=== PATIENT | male | born 1950 | race Caucasian/White ===

== ENCOUNTER 2017-07-16 06:11 | Day surgery (SDC) | payer OTHER ==
[2017-07-08 12:35] VITALS: BMI 20.9
[2017-07-16] MEDS ORDERED: oxyCODONE HCL 10 MG SUSTAINED ACTING TABLET PO ONE (06:20)
[2017-07-16] MEDS ORDERED: CEFAZOLIN 1 GM/D5W 1 GM/50 ML BAG IVPB ONE (06:20)
[2017-07-16] MEDS ORDERED: GABAPENTIN 300 MG CAPSULE (FP) PO ONE (06:20)
[2017-07-16] MEDS ORDERED: CELECOXIB 200 MG CAPSULE PO ONE (06:20)
[2017-07-16] MEDS ORDERED: TRANEXAMIC ACID 1000 MG/10 ML VIAL IVPUSH ONE (06:20)
[2017-07-16] MEDS ORDERED: ROPIVICAINE 0.2%/MORPH PF/KETOROLAC - 51ML DISP.SYRINGE IA ONE ×4 (06:20→09:29)
[2017-07-16] MEDS ORDERED: GABAPENTIN 300 MG CAPSULE (FP) ONE (06:22)
[2017-07-16] MEDS ORDERED: CELECOXIB 200 MG CAPSULE ONE (06:22)
[2017-07-16] MEDS ORDERED: oxyCODONE HCL 10 MG SUSTAINED ACTING TABLET ONE (06:22)
[2017-07-16] MEDS ORDERED: ROPIVACAINE HCL 0.5% 30ML VIAL ONE (06:36)
[2017-07-16] MEDS ORDERED: DEXAMETHASONE SOD PHOSPHATE/PF 10 MG/ML SDV ONE (06:36)
[2017-07-16] MEDS ORDERED: MIDAZOLAM HCL 2 MG/2 ML SINGLE DOSE VIAL ONE (06:36)
[2017-07-16] MEDS ORDERED: ceFAZolin SODIUM 1 GM VIAL ONE (07:09)
[2017-07-16] MEDS ORDERED: THROMBIN (BOVINE) 5,000 UNIT VIAL TP ONE ×3 (07:09→09:09)
[2017-07-16] MEDS ORDERED: BUPIVACAINE HCL/PF 0.5% (5MG/ML) 10 ML VIAL ONE (07:26)
[2017-07-16] MEDS ORDERED: PROPOFOL 20 ML ONE ×4 (07:32)
[2017-07-16] MEDS ORDERED: ePHEDrine SULFATE 50 MG/1 ML AMPULE ONE (07:32)
--- NOTE | 2017-07-16 07:49 | HP ---
Satellite [facility] - Chief Complaint Chief Complaint: left knee pain - Past Medical History Allergies/Adverse Reactions: Allergies Allergy/AdvReac Type Severity Reaction Status Date / Time No Known Drug Allergies Allergy Verified 07/08/17 12:22 - Current Medications Current Medications: Home Medications Medication Instructions Recorded Ascorbic Acid [Vitamin C] 500 mg PO DAILY 07/08/17 Elviteg/Cob/Emtri/Tenof Alafen 1 each PO HS 07/08/17 [Genvoya Tablet] Ferrous Sulfate 325 mg PO DAILY 07/08/17 Lisinopril 10 mg PO DAILY 07/08/17 Methadone [Dolophine -] 15 mg PO DAILY 07/08/17 Satellite Physical Exam - Physical Examination Vital Signs: Vital Signs Period Temp Pulse Resp BP Sys/Holman Pulse Ox Last 24 Hr 98.5 F 78 18 121/68 98 General Appearance: Well Nourished, Well Developed, Alert & Oriented x3 ENT: Clear Lung: Normal air movement Heart: Regular rate & rhythm Extremities: Other (left knee- + swelling, + ttp medially, decr rom, nvi xrays show grade 4 medial djd) Neurological: Intact, Alert, Oriented Satellite Impression/Plan - Impression/Plan Impression: left knee medial djd Operative Procedure: left medial maximus ukr Date to be Performed: 07/16/17
[2017-07-16] MEDS ORDERED: GELATIN, ABSORBABLE 100 EACH SPONGE TP ONE ×2 (08:46→09:09)
[2017-07-16] MEDS ORDERED: MAG HYDROX/AL HYDROX/SIMETH 30 ML UNIT-DOSE CUP PO PRN (09:43)
[2017-07-16] MEDS ORDERED: LACTATED RINGERS SOLUTION 1,000 ML IV SCH (09:45)
--- NOTE | 2017-07-16 09:48 | OP ---
Operative Note - Note: Operative Date: 07/16/17 (zen) Pre-Operative Diagnosis: left knee medial djd Operation: left medial maximus ukr Post-Operative Diagnosis: Same as Pre-op Surgeon: Brennan Hernandez Rolling Mill Operator: Ulices Maldonado Anesthesiologist/SHELL TRIM TOOL SETTER: Tyron Lundberg Anesthesia: Spinal, Local Specimens Removed: bone fragments Estimated Blood Loss (mls): 50 Operative Report Dictated: Yes
[2017-07-16] MEDS ORDERED: LISINOPRIL 10 MG TABLET (FP) PO SCH (10:00)
[2017-07-16] MEDS ORDERED: ONDANSETRON 4 MG/2 ML VIAL IVPUSH PRN (10:55)
[2017-07-16] MEDS ORDERED: oxyCODONE HCL 5 MG TABLET PO PRN ×2 (10:55)
[2017-07-16] MEDS: ACETAMINOPHEN 325 MG TABLET (FP) PO SCH ×2 (11:05→18:21)
[2017-07-16] MEDS: METHADONE HCL 10 MG TABLET PO SCH (13:00)
--- NOTE | 2017-07-16 14:50 | SPEC ---
DATE OF OPERATION: 07/16/2017 PREOPERATIVE DIAGNOSIS: Degenerative joint disease, left knee. POSTOPERATIVE DIAGNOSIS: Degenerative joint disease, left knee. PROCEDURE: Left medial unicompartmental knee replacement with robotic-assisted navigation (MAKOplasty) and patelloplasty. SURGICAL ATTENDING: Brennan Hernandez MD RANCH MANAGER: PIA Figueroa ANESTHESIA: Regional and spinal. CLOSURE: Medial VALENTE components with a 4 femur, 6 tibia, and a 9 polyethylene; No. 1 Vicryl, fascia; 0 and 2-0, subcutaneous; 3-0 Monocryl subcuticular with skin glue for the skin; 4-0 undyed Vicryl for pin sites. ESTIMATED BLOOD LOSS: Negligible. TOURNIQUET TIME: Approximately 25 minutes. COMPLICATIONS: None. CONDITION: To recovery in stable condition. DESCRIPTION OF OPERATIVE PROCEDURE: Patient was taken to the operating room on July 16, 2017. Spinal and regional anesthesia was administered by the anesthesiologist. IV Kefzol and TXA were administered prophylactically prior to the case. A well-padded pneumatic tourniquet was placed on the left proximal thigh. The left lower extremity was prepped and draped in the usual sterile fashion. A 6- to 8-cm longitudinal incision over the medial side of the patella from mid patella to the tibial tubercle was incised and was deepened using Bovie cautery. An arthrotomy was then made just medial to the patellar tendon and the patella. Subperiosteal dissection was done on the anteromedial proximal tibia all the way back to the MCL. Partial fat pad excision was performed, exposing the medial compartment. Checkpoint was malleable at both the femur and the tibia. Using 2 stab incisions in the femur 1 handbreadth above the patella on the femur and 2 stab incisions 1 handbreadth below the tibial tubercle on the tibia, 2 threaded pins were drilled in parallel fashion from anterior to posterior, going through the proximal cortex and engaging the 2nd but not through the 2nd cortex. To these threaded pins were fastened navigation rays, 1 on the femur and 1 on the tibia. The knee was then registered with the navigation device with the center of the rotation of the hip, medial and lateral malleoli, and multiple points both on the femur and on the tibia. Excellent registration of less than 0.5 mm was obtained on both to ensure adequate registration. The navigation device ensured us to "pop the bubbles" both on the femur and the tibia and that was performed and passed registration. The knee was then thoroughly inspected to remove all osteophytes both on the femur and the tibia. Also, osteophytes on the trochlea and on the surface of the patella were removed as well. The knee was then stressed with valgus stress at 0, 30, 60, 90, and 120 degrees of flexion. This propagated a looseness/tightness graft. The virtual positions of the components were then optimized to ensure an excellent graft. The tracking also was optimized by manipulating the virtual position to ensure that the femoral component articulated with the central portion of the tibial component. The robot was then brought into the field and was registered. The robot was used to bur the bone on both the femur and the tibia as to the specifications of the components. The trial components were then applied on both the femur and the tibia with an appropriate polyethylene insert. The knee was taken through a range of motion and found to have full extension, full flexion, with excellent stability. Stressing the graft revealed an excellent looseness/tightness graft with the trial components in place. The trial components were removed. The knee was thoroughly irrigated with a copious amount of antibiotic irrigation. The real components were then cemented in using modern generation cement techniques with antibiotic cement and pressurization. After the cement was hardened, the knee was thoroughly inspected to remove out all excess cement. The real polyethylene insert was then clipped into place. Range of motion and stability were again assessed to be as they were with the trials. At this time, the pins and the checkpoints were removed. The knee was again thoroughly irrigated. The arthrotomy was closed with No. 1 Vicryl, 0 and 2-0 subcutaneous, and 3-0 Monocryl subcuticular with skin glue for the skin, 4-0 undyed Vicryl for the pin sites. Sterile pressure dressing was placed over the knee. Patient awakened from anesthesia and transferred to recovery in stable condition. No complications. Estimated blood loss negligible. X-rays postoperatively revealed excellent position of the components. Yesenia [id number]
[2017-07-16] MEDS: CEFAZOLIN 1 GM/D5W 1 GRAM/50 ML BAG IVPB SCH (16:30)
[2017-07-16] MEDS: SENNOSIDES/DOCUSATE COMBO (SENNA PLUS) TABLET (UD) PO SCH (21:36)
[2017-07-16] MEDS: GABAPENTIN 300 MG CAPSULE (FP) PO SCH (21:36)
[2017-07-16] MEDS ORDERED: oxyCODONE HCL 10 MG SUSTAINED ACTING TABLET PO SCH (22:00)
[2017-07-17] MEDS: ACETAMINOPHEN 325 MG TABLET (FP) PO SCH ×2 (00:09→06:36)
[2017-07-17] MEDS: CEFAZOLIN 1 GM/D5W 1 GRAM/50 ML BAG IVPB SCH (00:09)
[2017-07-17 06:38] VITALS: BP 107/55; PULSE 58; TEMP 97.7
--- NOTE | 2017-07-17 07:54 | PN ---
Progress Note (short form) - Note Progress Note: Ortho Pt seen and examined s/p left medial maximus ukr pod #1 Selected Entries 07/17/17 04:00 Temperature 97.7 F Pulse Rate 58 L Respiratory 19 Rate Blood Pressure 107/55 dressing c/d/i, calf soft, nt rom 0-90, nvi a/p PT dvt ppx pain control d/c home today f/u in 1 week
--- NOTE | 2017-07-17 07:54 | DS ---
Physical Examination Vital Signs: Vital Signs Temperature 97.7 F 07/17/17 04:00 Pulse Rate 58 L 07/17/17 04:00 Respiratory Rate 19 07/17/17 04:00 Blood Pressure 107/55 07/17/17 04:00 O2 Sat by Pulse Oximetry (%) 95 07/17/17 06:37 Discharge Summary Reason For Visit: OSTEOARTHRITIS Procedures: Principal: s/p left medial maximus ukr Hospital Course: admitted for elective left medial maximus ukr, uneventful post-op, stable for d/c Condition: Good - Instructions Diet, Activity, Other Instructions: Post-op Instructions-Partial Knee Replacement Call the office for a follow-up appointment in 1 week - [phone] Aspirin 325mg daily for 6 weeks. Pain medication was sent into your pharmacy. Apply Graduated Compression Stockings (TEDs) to both lower extremities- remove daily for hygiene ONLY Apply Sequential Compression Device (SCDs) to both Lower extremities remove for PT and hygiene ONLY Apply cold packs to affected area for 15 minutes every 2 hours. Physical Therapist will come to your home for the first 5 days. You will be set up with outpatient PT at your first post-operative visit. Patient may ambulate as tolerated-encourage self care (at least every 2-3 hours while awake) with walker or cane Maintain Aquacel (waterproof) dressing to operative wound (will be removed by surgeon at first office visit) Shower with Aquacel dressing in place-if Aquacel integrity compromised, remove and apply dry sterile dressing and notify Orthopedist. DO NOT SHOWER unless Orthopedists approves without Aquacel dressing CONTACT THE OFFICE FOR ANY CHANGE IN YOUR CONDITION (for example-fever greater than 102 degrees, excessive bleeding from operative site, purulent drainage, severe swelling or pain) GO TO THE EMERGENCY ROOM IF THERE IS A MEDICAL EMERGENCY Knee Precautions: * Keep a rolled towel under affected heel while in bed or chair (to keep knee in extension) * Keep affected leg elevated except during mealtimes * DO NOT PLACE PILLOW UNDER AFFECTED KNEE * If you have any questions, please do not hesitate to call the office - [phone]. Referrals: Brennan Hernandez MD [Staff Physician] - Disposition: VNS/HOME HEALTH CARE - Home Medications Comprehensive Discharge Medication List: Ambulatory Orders Ascorbic Acid [Vitamin C] 500 mg PO DAILY 07/08/17 Elviteg/Cob/Emtri/Tenof Alafen [Genvoya Tablet] 1 each PO HS 07/08/17 Ferrous Sulfate 325 mg PO DAILY 07/08/17 Lisinopril 10 mg PO DAILY 07/08/17 Methadone [Dolophine -] 15 mg PO DAILY 07/08/17 Aspirin [ASA -] 325 mg PO DAILY@0800 tablet 07/16/17 Oxycodone HCl/Acetaminophen [Percocet 5-325 mg Tablet] 1 - 2 tab PO Q6H #50 tab MDD 8 07/16/17
[2017-07-17] MEDS ORDERED: ASPIRIN 325 MG TABLET PO SCH (08:00)
[2017-07-17] MEDS: MULTIVITAMINS (DAILY MVI) TABLET (FP) PO SCH ×2 (09:12→09:15)
[2017-07-17] MEDS: PANTOPRAZOLE 40 MG TABLET (FP) PO SCH ×2 (09:12→09:15)
[2017-07-17] MEDS: SENNOSIDES/DOCUSATE COMBO (SENNA PLUS) TABLET (UD) PO SCH ×2 (09:12→09:18)
[2017-07-17] MEDS: FERROUS SO4 325 MG TABLET (FP) PO SCH ×2 (09:12→09:14)
[2017-07-17] MEDS: METHADONE HCL 10 MG TABLET PO SCH (09:15)
[2017-07-17] MEDS: GABAPENTIN 300 MG CAPSULE (FP) PO SCH (09:15)
[2017-07-17] MEDS ORDERED: LISINOPRIL 10 MG TABLET (FP) PO SCH (10:00)
== END 2017-07-17 11:37 | disposition home health service (06) ==
LOC: FASU 06:11 → FM/S 06:20 → FASU 07-17 11:37
PROVIDERS: ATTEND Orthopaedic Surgery
PROC: 8E0YXBZ Computer Assisted Procedure of Lower Extremity (ICD-10-PCS; 2017-07-16)
PROC: 8E0Y0CZ Robotic Assisted Procedure of Lower Extremity, Open Approach (ICD-10-PCS; 2017-07-16)
PROC: 0SRD0L9 Replacement of Left Knee Joint with Medial Unicondylar Synthetic Substitute, Cemented, Open Approach (ICD-10-PCS; principal; 2017-07-16 08:00)
DX: M17.12 Unilateral primary osteoarthritis, left knee (principal)
CPT/HCPCS: 20985; 27446; C1776; S2900; 73560-TC-LT-FY; 94010; 94760; 97116-GP; 97162-GP

== ENCOUNTER 2019-11-02 00:50 | Inpatient (IN) | payer OTHER ==
[2019-11-02] MEDS ORDERED: ONDANSETRON 4 MG/2 ML VIAL IVPUSH ONE ×2 (01:25→02:49)
[2019-11-02] MEDS ORDERED: FAMOTIDINE 20 MG/50 ML IVPB 20 MG/50 ML MG IVPB ONE ×2 (01:45→01:53)
[2019-11-02 01:49] LABS: BASO % 0.6 % (0-2.0); EOS % 2.4 % (0-4.5); HEMATOCRIT 37.8 % (35.4-49); LYMPH % 32.1 % (8-40); MCH 35.8 pg (25.7-33.7); MCHC 34.4 g/dl (32.0-35.9); MEAN PLT VOLUME 9.2 fl (7.5-11.1); NEUT % 57.9 % (42.8-82.8); PLATELET COUNT 193 K/MM3 (134-434); RBC 3.63 M/mm3 (4.00-5.60); WHITE BLOOD COUNT 9.1 K/mm3 (4.0-10.0)
--- NOTE | 2019-11-02 01:53 | PDOC ---
History of Present Illness - General Chief Complaint: Lightheaded Stated Complaint: DIZZINESS, VOMITING Time Seen by Provider: 11/02/19 01:19 - History of Present Illness Initial Comments: 11/02/19 01:52 HPI: 69 y/o M with hx of HIV and HTN presenting with dizziness associated with abd pain, nausea, and emesis. Patient reports he believes he had food poisoning. He had soup earlier this evening then around 11pm he felt abd pain which was followed by dizziness and emesis. Pain was epigastric and non radiating and difficult to describe. Denies similar episodes in the past. He reports he feels like his head is spinning and feels like he is going to pass out. Deneis syncope, trauma, fever, chills, chest pain, SOB, dysuria, diarrhea, constipation PMHx: as noted above ROS: as noted SHx: Denies tobacco use; no alcohol use; no rec drugs Allergies: NKDA ROS: GENERAL/CONSTITUTIONAL: No fever or chills. +gen weakness. HEAD, EYES, EARS, NOSE AND THROAT: No change in vision. No ear pain or discharge. No sore throat. CARDIOVASCULAR: No chest pain or shortness of breath RESPIRATORY: No cough, wheezing, or hemoptysis. GASTROINTESTINAL: +nausea, vomiting; no diarrhea or constipation. GENITOURINARY: No dysuria, frequency, or change in urination. MUSCULOSKELETAL: No joint or muscle swelling or pain. No neck or back pain. SKIN: No rash NEUROLOGIC: +vertigo; No headache, loss of consciousness, or change in strength/sensation. ENDOCRINE: No increased thirst. No abnormal weight change HEMATOLOGIC/LYMPHATIC: No anemia, easy bleeding, or history of blood clots. ALLERGIC/IMMUNOLOGIC: No hives or skin allergy. PE: GENERAL: Awake, alert, and fully oriented, mod acute distress, vomiting and dry heaving HEAD: No signs of trauma, normocephalic, atraumatic EYES: EOMI, sclera anicteric, conjunctiva clear ENT: Auricles normal inspection, hearing grossly normal, nares patent, oropharynx clear without exudates. Moist mucosa NECK: Normal ROM, no lymphadenopathy LUNGS: No increased work of breathing, symmetrical chest rise HEART: Regular rate, regular rhythm, no LE edema ABDOMEN: Soft, nondistended, diffuse abd ttp, negative murphys sign, negative rosvings, negative mcburneys, no rebound. No masses. No CVAT MUSCULOSKELETAL: FROM NEUROLOGICAL: Cranial nerves II through XII grossly intact. Normal speech, no focal sensorimotor deficits SKIN: pallor Past History - Medical History Allergies/Adverse Reactions: Allergies Allergy/AdvReac Type Severity Reaction Status Date / Time No Known Drug Allergies Allergy Verified 07/08/17 12:22 Home Medications: Ambulatory Orders Ascorbic Acid [Vitamin C] 500 mg PO DAILY 07/08/17 Elviteg/Cob/Emtri/Tenof Alafen [Genvoya Tablet] 1 each PO HS 07/08/17 Ferrous Sulfate 325 mg PO DAILY 07/08/17 Lisinopril 10 mg PO DAILY 07/08/17 Methadone [Dolophine -] 15 mg PO DAILY 07/08/17 Aspirin [ASA -] 325 mg PO DAILY@0800 tablet 07/16/17 Oxycodone HCl/Acetaminophen [Percocet 5-325 mg Tablet] 1 - 2 tab PO Q6H #50 tab MDD 8 07/16/17 Anemia: No (TAKING IRON BEFORE SURGERY) Asthma: No Cancer: No Cardiac Disorders: No CVA: No COPD: No CHF: No Dementia: No Diabetes: No GI Disorders: No Disorders: Yes (BPH) HTN: Yes Hypercholesterolemia: No Liver Disease: No Seizures: No Thyroid Disease: No - Surgical History Abdominal Surgery: No Appendectomy: No Cardiac Surgery: No Cholecystectomy: No Lung Surgery: No Neurologic Surgery: No Orthopedic Surgery: No - Psycho-Social/Smoking History Smoking History: Unknown if ever smoked Have you smoked in the past 12 months: Yes Number of Cigarettes Smoked Daily: 5 'Breaking Loose' booklet given: 06/10/17 - Substance Abuse Hx (Audit-C & DAST Scrn) How often the patient has a drink containing alcohol: Monthly or less Score: In Men: 4 or > Positive; In Women: 3 or > Positive: 1 Screen Result (Pos requires Nsg. Audit-10AR): Negative In the last yr the pt used illegal drug/Rx for NonMed reason: No Score: Yes response is considered Positive: 0 Screen Result (Positive result requires Nsg. DAST-10): Negative *Physical Exam - Vital Signs Last Vital Signs Temp Pulse Resp BP Pulse Ox 97.6 F 62 17 125/64 100 11/02/19 01:00 11/02/19 01:00 11/02/19 01:00 11/02/19 01:00 11/02/19 01:00 ED Treatment Course - LABORATORY CBC & Chemistry Diagram: 11/02/19 01:38 11/02/19 01:40 - ADDITIONAL ORDERS Additional order review: 11/02/19 01:38 RBC 3.63 L MCV 104.0 H MCHC 34.4 RDW 13.0 MPV 9.2 Neutrophils % 57.9 Lymphocytes % 32.1 Monocytes % 7.0 Eosinophils % 2.4 Basophils % 0.6 - RADIOLOGY Radiology Studies Ordered: Category Date Time Status ABDOMEN & PELVIS CT W/O CONTR [CT] Stat CT Scan 11/02/19 01:[address] WITHOUT CONTRAST [CT] Stat CT Scan 11/02/19 01:46 Ordered CXRPORT [CHEST X-RAY PORTABLE*] [RAD] Stat Radiology 11/02/19 01:25 Ordered - Medications Given in the ED: ED Medications Discontinued Medications Generic Name Dose Route Start Last Admin Trade Name Freq PRN Reason Stop Dose Admin Ondansetron HCl 4 mg 11/02/19 01:25 11/02/19 01:39 Zofran Injection IVPUSH 11/02/19 01:26 4 mg ONCE ONE Administration Medical Decision Making - Medical Decision Making 11/02/19 03:28 69 y/o M with hx of HIV and HTN presenting with dizziness associated with abd pain, nausea, and emesis. VSS, AF. PE with diffuse abd ttp. DDx includes CVA, ACS, gallbladder path, panc, kidney path -cbc, cmp, card prof, coags, lipase, lactate, ua, ucx, ekg, cxr, ct head, ct abd/pel -zofran, ivf 11/02/19 03:30 cr 2.6 ekg nsr with no swati/d ct with no acute pathology will admit for fran, dizziness, emesis will order meclizine Discharge - Discharge Information Problems reviewed: Yes Clinical Impression/Diagnosis: Dizziness, FRAN (acute kidney injury), Nausea & vomiting Condition: Stable - Admission Yes - Follow up/Referral Referrals: Twin Bobo MD [Primary Care Provider] - - Patient Discharge Instructions - Post Discharge Activity
--- NOTE | 2019-11-02 01:56 | PDOC ---
Attending Attestation - Resident Resident Name: Alexandria Larkin - ED Attending Attestation I have performed the following: I have examined & evaluated the patient, The case was reviewed & discussed with the resident, I agree w/resident's findings & plan, Exceptions are as noted - HPI HPI: 69 yo M history HIV (viral load undetectable per patient), HTN presents with episode of dizziness just prior to arrival. He states that he suddenly developed dizziness, sweating, feeling of room spinning, and abdominal pain followed by multiple episodes of NBNB vomiting. He states that the dizziness improves when he closes his eyes. Continues to have diffuse crampy abd pain and dizziness. - Physicial Exam PE: GENERAL: Awake, alert, and fully oriented, in no acute distress. Sitting in stretcher with eyes closed HEAD: No signs of trauma EYES: PERRLA, EOMI, sclera anicteric, conjunctiva clear ENT: Auricles normal inspection, hearing grossly normal, nares patent, oropharynx clear without exudates. Dry mucosa. Poor dentition NECK: Normal ROM, supple, no lymphadenopathy, JVD, or masses LUNGS: Breath sounds equal, clear to auscultation bilaterally. No wheezes, and no crackles HEART: Regular rate and rhythm, normal S1 and S2, no murmurs, rubs or gallops ABDOMEN: Soft, +diffuse mild tenderness, normoactive bowel sounds. No guarding, no rebound. No masses EXTREMITIES: Normal range of motion, no edema. No clubbing or cyanosis. No cords, erythema, or tenderness NEUROLOGICAL: Cranial nerves II through XII grossly intact. Normal speech. Motor and sensation intact. Gait not tested due to nature of complaint. SKIN: Warm, dry, normal turgor, no rashes or lesions noted. - Medical Decision Making Pt with abrupt onset of vertiginous symptoms, sweating, abd pain, vomiting. Unclear if his symptoms were precipitated by a GI issue like gastroenteritis, which prompted the dizziness and vomiting, or if he has a central vertigo that prompted the vomiting and abd cramping. Will obtain labs, CTH and CT a/p (as he is diffusely tender and appears ill). Will give IV fluids for dehydration. 11/02/19 02:49 Found to have labs c/w FRAN, uremia, which may have caused his symptoms. Discharge - Discharge Information Problems reviewed: Yes Clinical Impression/Diagnosis: Dizziness, FRAN (acute kidney injury) Nausea & vomiting Qualifiers: Vomiting type: unspecified Vomiting Intractability: non-intractable Qualified Code(s): R11.2 - Nausea with vomiting, unspecified Condition: Stable - Follow up/Referral - Patient Discharge Instructions - Post Discharge Activity
[2019-11-02] MEDS ORDERED: LACTATED RINGERS SOLUTION 1000 ML INFUS.BAG IV ONE (01:57)
[2019-11-02 01:59] LABS: INR 1.08 (0.83-1.09); PROTHROMBIN TIME (PATIENT) 12.7 SEC (9.7-13.0)
[2019-11-02 02:01] LABS: ACTIVATED PTT 27.1 SECONDS (25.2-36.5)
[2019-11-02 02:28] LABS: ALBUMIN 4.1 g/dl (3.4-5.0); ALK PHOS 41 U/L (45-117); ANION GAP 9 MMOL/L (8-16); BILIRUBIN,TOTAL 0.4 mg/dL (0.2-1); BLOOD UREA NITROGEN 24.4 mg/dL (7-18); CALCIUM 9.1 mg/dL (8.5-10.1); CHLORIDE 105 mmol/L (98-107); CO2 24 mmol/L (21-32); CREATININE 2.3 mg/dL (0.55-1.3); GLUCOSE,RANDOM 158 mg/dL (74-106); LIPASE 123 U/L (73-393); MAGNESIUM 2.3 mg/dL (1.8-2.4); POTASSIUM 4.2 mmol/L (3.5-5.1); SGOT/AST 21 U/L (15-37); SGPT/ALT 19 U/L (13-61); SODIUM 138 mmol/L (136-145); TOT PROT 7.7 g/dl (6.4-8.2)
[2019-11-02] MEDS ORDERED: MECLIZINE HCL 25 MG TABLET (FP) PO ONE (02:50)
[2019-11-02] MEDS ORDERED: MECLIZINE HCL 25 MG TABLET (FP) ONE (03:03)
--- NOTE | 2019-11-02 03:34 | PN ---
Teaching Attending Note Name of Resident: Osvaldo Fleming ATTENDING PHYSICIAN STATEMENT I saw and evaluated the patient. I reviewed the resident's note and discussed the case with the resident. I agree with the resident's findings and plan as documented. SUBJECTIVE: Patient is a 69 year old man with a PMH of HIV disease (viral load undetectab le), BPH, Kidney cysts, Remote heroin use, Tobacco use and HTN presenting with dizziness associated with abdominal pain, nausea and vomiting. Patient reports he believes he had food poisoning. He had canned soup earlier this evening then around 11pm he developed abdominal pain which was followed by dizziness and vomiting. Pain was epigastric and non radiating and difficult to describe. He states that the dizziness improves when he closes his eyes. Denies similar episodes in the past. He reports he feels like his head is spinning and feels like he is going to pass out. Denies syncope, trauma, fever, chills, chest pain, SOB, dysuria, diarrhea or constipation. No sick contacts or recent travels. Denies alcohol or illicit drug use. Family history is unremarkable. OBJECTIVE: Alert Vital Signs Period Temp Pulse Resp BP Sys/Holman Pulse Ox Last 24 Hr 97.6 F 62-77 17-18 117-125/59-64 97-100 HEENT: No Jaundice, eye redness or discharge, PERRLA, EOMI. Normocephalic, atraumatic. External ears are normal and hearing is grossly intact. No nasal discharge. Neck: Supple, nontender. No palpable adenopathy or thyromegaly. No JVD Chest: Good effort. Clear to auscultation and percussion. Heart: Regular. No S3, rub or murmur Abdomen: Not distended, soft, mild diffuse tenderness and no HSM. No rebound or guarding. Normal bowel sounds. Ext: Peripheral pulses intact. No leg edema. Skin: Warm and dry. No petechiae, rash or ecchymosis. Neuro: Alert. Oriented x3. CN 2-12 grossly intact. Sensation grossly intact in all four extremities and DTR are symmetric. Psych: Appropriate mood and affect. Good insight. Home Medications Medication Instructions Recorded Ascorbic Acid [Vitamin C] 500 mg PO DAILY 07/08/17 Elviteg/Cob/Emtri/Tenof Alafen 1 each PO HS 07/08/17 [Genvoya Tablet] Ferrous Sulfate 325 mg PO DAILY 07/08/17 Lisinopril 10 mg PO DAILY 07/08/17 Methadone [Dolophine -] 15 mg PO DAILY 07/08/17 Aspirin [ASA -] 325 mg PO DAILY@0800 tablet 07/16/17 Oxycodone HCl/Acetaminophen 1 - 2 tab PO Q6H #50 tab MDD 8 07/16/17 [Percocet 5-325 mg Tablet] Abnormal Lab Results 11/02/19 11/02/19 01:38 01:40 RBC 3.63 L MCV 104.0 H MCH 35.8 H BUN 24.4 H Creatinine 2.3 H Random Glucose 158 H Alkaline Phosphatase 41 L ASSESSMENT AND PLAN: 1. Gastroenteritis/Dizziness - Etiology unclear but food poisoning due to preformed toxins is a likely culprit. No acute abnormality on noncontrast head CT. Preliminary report of noncontrast CT abdomen/pelvis shows mild RLL ground glass opacity, renal cysts, but no acute intra-abdominal abnormality. CXR shows hyperinflation but no evidence of acute lung disease. Urine toxicology and urinalysis pending. ER staff prescribed Pepcid, Zofran, Meclizine and IV LR for the patient. Viral testing for COVID-19 ordered and patient placed on airborne, droplet and contact isolation. EKG shows NSR at 69/minute and QTc [address]-T wave changes. Will admit to telemetry, keep him NPO, get viral load/CD4 count, HbA1c, do neurochecks, implement fall precautions, continue IV NS, Zofran and IV Protonix. Consult ID, Neurology and if vomiting persists, will consult GI. Will continue comprehensive care for all of patients comorbid conditions including Genvoya for HIV disease. 2. FRAN Likely partly due to volume contraction. Will hold Lisinopril, get urinalysis stat, urine protein/creatinine ratio, kidney sonogram, hydrate with IV NS, monitor urine output and consult Nephrology. Avoid nephrotoxic agents such as NSAIDS, aminoglycosides, contrast dyes and certain Alternative medicine products. 3. Hypertension Will restart suitable outpatient antihypertensive drugs when clinically appropriate. Subsequently, will revise regimen to ensure [id number] excellent BP control. Patient counseled on the injurious effects of uncontrolled hypertension. Nonpharmacologic measures to control hypertension like weight loss, salt restriction and exercise stressed. Importance of adherence to treatment regimen and attainment of normotension emphasized. 4. Tobacco Use Counseled on risks associated with tobacco use. We will provide patient all the necessary assistance to facilitate smoking cessation and prescribe Nicotine patch. 5. DVT prophylaxis - Heparin 5000u sq tid. 6. Advance directives - Full code
--- NOTE | 2019-11-02 03:54 | HP ---
CHIEF COMPLAINT: abd pain w/a nausea vomiting PCP: [facility] HISTORY OF PRESENT ILLNESS: 69M w/ pmh of HTN, HIV, BPH, h/o of opioid usage(on methadone 10mg) presenting to [facility] for complaint of lower abdominal pain pain w/a nausea vomiting. Has "lost count" of how many times he has vomitted. Vomitus was initially food-like, then became yellow fluid. Last night had a dinner of rice of beans with his . Later he had a can of [employer] Noodle soup, which was prepped by his . He doesn't know if the can was rusted, bulged, or really old. His did not have any. 1 hour after eating, pt was laying down for sleep when he felt a squeezing cramping sensation in his lower abd followed by chills, sweating, spinning sensation, nausea, and vomiting. Does not currently have an appeptite. Denies diarrhea. Denies change in recent medication regimen, or recent abx usage. Denies h/o gallstones, abd surgeries. Thinks his HIV is well-controlled, w/ undetectable viral load. Denies cough. No sick contacts at home. HPI was limited, d/t pt discomfort with active vomiting. Pt refused to answer all questions. ER course was notable for: (1) Tmax 97.6, HR 77. Tenderness throughout abd (2) WBC 9.1 (3) Tbil 0.4, AST/ALT 21/19; lipase 123 (4) BUN 24.4, Cr 2.3 (5) CTH: neg for acute intracranial pathology (6) CT A/P: RLL groundglass densities, possible PNA. Right renal cortical density is likely a hemorrhagic proteinaceous cyst. Small amount of pelvic free fluid (7) LR x1L, pepcid, meclizine, zofran 4mg x2 Recent Travel: denies PAST MEDICAL HISTORY: as above PAST SURGICAL HISTORY: denies Social History: Smokincigarettes daily Alcohol: denies Drugs: h/o IV heroin Allergies No Known Drug Allergies Allergy (Verified 07/08/17 12:22) HOME MEDICATIONS: Home Medications Medication Instructions Recorded Ascorbic Acid [Vitamin C] 500 mg PO DAILY 07/08/17 Elviteg/Cob/Emtri/Tenof Alafen 1 each PO HS 07/08/17 [Genvoya Tablet] Ferrous Sulfate 325 mg PO DAILY 07/08/17 Lisinopril 10 mg PO DAILY 07/08/17 Methadone [Dolophine -] 15 mg PO DAILY 07/08/17 Aspirin [ASA -] 325 mg PO DAILY@0800 tablet 07/16/17 Oxycodone HCl/Acetaminophen 1 - 2 tab PO Q6H #50 tab MDD 8 07/16/17 [Percocet 5-325 mg Tablet] REVIEW OF SYSTEMS CONSTITUTIONAL: chills, diaphoresis, loss of appetite Absent: fever, generalized weakness, malaise, weight change HEENT: Absent: rhinorrhea, nasal congestion, throat pain, throat swelling, difficulty swallowing, mouth swelling, ear pain, eye pain, visual changes CARDIOVASCULAR: Absent: chest pain, syncope, palpitations, irregular heart rate, lightheadedness, peripheral edema RESPIRATORY: Absent: cough, shortness of breath, dyspnea with exertion, orthopnea, wheezing, stridor, hemoptysis GASTROINTESTINAL: abd pain, nausea, vomiting Absent: abdominal distension, , diarrhea, constipation, melena, hematochezia GENITOURINARY: Absent: dysuria, frequency, urgency, hesitancy, hematuria, flank pain, genital pain MUSCULOSKELETAL: Absent: myalgia, arthralgia, joint swelling, back pain, neck pain SKIN: Absent: rash, itching, pallor HEMATOLOGIC/IMMUNOLOGIC: Absent: easy bleeding, easy bruising, lymphadenopathy, frequent infections ENDOCRINE: Absent: unexplained weight gain, unexplained weight loss, heat intolerance, cold intolerance NEUROLOGIC: Absent: headache, focal weakness or paresthesias, dizziness, unsteady gait, seizure, mental status changes, bladder or bowel incontinence PSYCHIATRIC: Absent: anxiety, depression, suicidal or homicidal ideation, hallucinations. PHYSICAL EXAMINATION Vital Signs - 24 hr 11/02/19 11/02/19 01:00 03:07 Temperature 97.6 F Pulse Rate 62 Pulse Rate [ 77 Apical] Respiratory 17 18 Rate Blood Pressure 125/64 Blood Pressure 117/59 L [Left Arm] O2 Sat by Pulse 100 97 Oximetry (%) GENERAL: Awake, uncomfortable-appearing. Thin and pale HEAD: NC/AT. Mild temporal wasting EYES: sclera anicteric, conjunctiva clear and w/o pallor EARS, NOSE, THROAT: Moist mucous membranes. Refused to open mouth completely NECK: Normal range of motion, supple without lymphadenopathy, JVD, or masses. LUNGS: Breath sounds equal, clear to auscultation bilaterally. No wheezes, and no crackles. No accessory muscle use. HEART: Regular rate and rhythm, normal S1 and S2 without murmur, rub or gallop. ABDOMEN: Soft, nontender, not distended, normoactive bowel sounds, no guarding, no rebound. Bright yellow-green vomitus MUSCULOSKELETAL: No bony deformities or tenderness. UPPER EXTREMITIES: 2+ pulses, warm, well-perfused. No cyanosis. No clubbing. No peripheral edema. LOWER EXTREMITIES: 2+ pulses, warm, well-perfused. No calf tenderness. No peripheral edema. NEUROLOGICAL: Normal speech. Laboratory Results - last 24 hr 11/02/19 11/02/19 11/02/19 01:30 01:38 01:38 WBC 9.1 RBC 3.63 L Hgb 13.0 Hct 37.8 MCV 104.0 H MCH 35.8 H MCHC 34.4 RDW 13.0 Plt Count 193 MPV 9.2 Absolute Neuts (auto) 5.3 Neutrophils % 57.9 Lymphocytes % 32.1 Monocytes % 7.0 Eosinophils % 2.4 Basophils % 0.6 Nucleated RBC % 0 PT with INR 12.70 INR 1.08 PTT (Actin FS) 27.1 Sodium Potassium Chloride Carbon Dioxide Anion Gap BUN Creatinine Est GFR (CKD-EPI)AfAm Est GFR (CKD-EPI)NonAf Random Glucose Lactic Acid 1.8 Calcium Magnesium Total Bilirubin AST ALT Alkaline Phosphatase Creatine Kinase Creatine Kinase Index CK-MB (CK-2) Troponin I Total Protein Albumin Lipase 11/02/19 01:40 WBC RBC Hgb Hct MCV MCH MCHC RDW Plt Count MPV Absolute Neuts (auto) Neutrophils % Lymphocytes % Monocytes % Eosinophils % Basophils % Nucleated RBC % PT with INR INR PTT (Actin FS) Sodium 138 Potassium 4.2 Chloride 105 Carbon Dioxide 24 Anion Gap 9 BUN 24.4 H Creatinine 2.3 H Est GFR (CKD-EPI)AfAm 32.60 Est GFR (CKD-EPI)NonAf 28.13 Random Glucose 158 H Lactic Acid Calcium 9.1 Magnesium 2.3 Total Bilirubin 0.4 AST 21 ALT 19 Alkaline Phosphatase 41 L Creatine Kinase 177 Creatine Kinase Index No Result Required. CK-MB (CK-2) < 1.0 Troponin I < 0.02 Total Protein 7.7 Albumin 4.1 Lipase 123 ASSESSMENT/PLAN: 69M w/ pmh of HTN, HIV, BPH, h/o of opioid usage(on methadone 10mg) presenting to [facility] for complaint of lower abdominal pain pain w/a nausea-vomiting 1hour after eating [employer] chicken-noodle soup. Admitted for food-related gastroenteritis. #nausea-vomitting --possibly 2/2 food-related gastroenteritis > CT A/P: RLL groundglass densities, possible PNA. Right renal cortical density is likely a hemorrhagic proteinaceous cyst. Small amount of pelvic free fluid - zofran - protonix - IVF - CLD then ADAT - GI consult(Junior): --recs pending #dizziness --likely 2/2 gastro etiology ---improved > CTH: neg for acute intracranial pathology - consider neuro consult if worsen #FRAN vs ?CKD > Cr 2.3 - IVF - nephro consult(Chung): --recs pending #chronic renal cyst --pt is aware and having it followed as outpatient - will need outpatient follow-up imaging #chronic HTN - holding lisinopril for now #chronic HIV - ID consult(Javad): to cw Genvoya as appropriate --recs pending #h/o opioid usage - needs med rec before restarting methadone ?10mg FEN - CLD, then ADAT - NS@100 DVT PPX - SQH Family Medical History Family History: Unable to Obtain Visit type - Emergency Visit Emergency Visit: Yes ED Registration Date: 11/02/19 Care time: The patient presented to the Emergency Department on the above date and was hospitalized for further evaluation of their emergent condition. - New Patient This patient is new to me today: Yes Date on this admission: 11/02/19 - Critical Care Critical Care patient: No ATTENDING PHYSICIAN STATEMENT I saw and evaluated the patient. I reviewed the resident's note and discussed the case with the resident. I agree with the resident's findings and plan as documented. SUBJECTIVE: OBJECTIVE: ASSESSMENT AND PLAN:
[2019-11-02] MEDS ORDERED: SODIUM CHLORIDE 1,000 ML IV SCH (05:00)
[2019-11-02] MEDS ORDERED: HEPARIN NA (PORCINE) 5,000 UNITS/ML 1ML VIAL ONE ×2 (06:07→13:30)
[2019-11-02] MEDS: HEPARIN NA (PORCINE) 5,000 UNITS/ML 1ML VIAL SQ SCH ×4 (06:11→21:03)
[2019-11-02 06:18] LABS: HEMATOCRIT 31.3 % (35.4-49); HEMOGLOBIN 10.8 GM/dL (11.7-16.9); MCH 35.5 pg (25.7-33.7); MCHC 34.4 g/dl (32.0-35.9); MEAN CELL VOLUME 103.2 fl (80-96); MEAN PLT VOLUME 9.1 fl (7.5-11.1); PLATELET COUNT 145 K/MM3 (134-434); RBC 3.03 M/mm3 (4.00-5.60); RDW 12.7 % (11.9-15.9)
[2019-11-02 06:43] LABS: ALBUMIN 3.5 g/dl (3.4-5.0); BILIRUBIN,TOTAL 0.4 mg/dL (0.2-1); BLOOD UREA NITROGEN 22.7 mg/dL (7-18); CALCIUM 8.5 mg/dL (8.5-10.1); MAGNESIUM 2.1 mg/dL (1.8-2.4); PHOSPHOROUS 2.1 mg/dL (2.5-4.9); POTASSIUM 4.2 mmol/L (3.5-5.1); TOT PROT 6.6 g/dl (6.4-8.2)
--- NOTE | 2019-11-02 09:16 | EKG ---
Test Reason : Blood Pressure : / mmHG Vent. Rate : 069 BPM Atrial Rate : 069 BPM P-R Int : 166 ms QRS Dur : 084 ms QT Int : 436 ms P-R-T Axes : 084 041 067 degrees QTc Int : 467 ms NORMAL SINUS RHYTHM NORMAL ECG NO PREVIOUS ECGS AVAILABLE Confirmed by RAJESH ZENG MD ([id number]) on 11/02/2019 9:15:41 AM Referred By: Confirmed By:RAJESH ZENG MD
[2019-11-02] MEDS ORDERED: PANTOPRAZOLE SODIUM 40 MG VIAL ONE (09:35)
[2019-11-02] MEDS: PANTOPRAZOLE SODIUM 40 MG VIAL IVPUSH SCH (09:45)
--- NOTE | 2019-11-02 11:12 | CON.GI ---
Consult Consult Specialty:: Gastroenterology Referred by:: Dr Osvaldo Fleming Reason for Consultation:: Abdominal pain - History of Present Illness Chief Complaint: Persistent vomiting and abdominal pain History of Present Illness: 69M with HIV chronically on HAART medications developed the sudden onset of severe periumbilical pain about 2 hours after eating chicken soup for dinner. He had rice and beans and a TV dinner for lunch. He has no preceding weight looss, loss of appetite or h/o abdominal pain. He has never had an EGD or a colonoscopy although a colonoscopy was arranegd by my partner Dr Edmundo Broussard in 2016 after he successfuly completed a course of therapy for HCV. 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 NO recent new medication or foreign travel. - History Source History Provided By: Patient Limitations to Obtaining History: No Limitations - Past Medical History Cardio/Vascular: Yes: HTN Hepatobiliary: Yes: Hepatitis C (treated and cured in [address] Edmundo Broussard) Infectious Disease: Yes: HIV (on HAART with Dr Farnsworth) - Past Surgical History Past Surgical History: Yes: None - Alcohol/Substance Use Hx Alcohol Use: No (STOPPED OVER 25 YEARS AGO) History of Substance Use: reports: Heroin (IVDA until 1991) - Smoking History Smoking history: Current every day smoker Have you smoked in the past 12 months: Yes Aproximately how many cigarettes per day: 5 - Social History Usual Living Arrangement: With Spouse ADL: Independent 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 Place of : [facility] History of Recent Travel: No Home Medications - Allergies Allergies/Adverse Reactions: Allergies Allergy/AdvReac Type Severity Reaction Status Date / Time No Known Drug Allergies Allergy Verified 11/02/19 07:07 - Home Medications Home Medications: Ambulatory Orders Ascorbic Acid [Vitamin C] 500 mg PO DAILY 07/08/17 Elviteg/Cob/Emtri/Tenof Alafen [Genvoya Tablet] 1 each PO HS 07/08/17 Lisinopril 10 mg PO DAILY 07/08/17 Methadone [Dolophine -] 15 mg PO DAILY 07/08/17 Aspirin [ASA -] 325 mg PO DAILY@0800 tablet 07/16/17 Family Medical History Family Hx Nuerologic Problems: Mother (ruptured cerebral aneurysm) Other Family History: aunt had breast cancer. father estranged. mother of cerebral aneurysm on her 80s Review of Systems - Review of Systems Constitutional: reports: No Symptoms Eyes: reports: No Symptoms HENT: reports: No Symptoms Neck: reports: No Symptoms Cardiovascular: reports: No Symptoms Respiratory: reports: No Symptoms Gastrointestinal: reports: Abdominal Pain, Vomiting Genitourinary: reports: No Symptoms Musculoskeletal: reports: No Symptoms Neurological: reports: No Symptoms Physical Exam-GI Vital Signs: Vital Signs Temperature 98 F 11/02/19 07:30 Pulse Rate 80 11/02/19 07:30 Respiratory Rate 16 11/02/19 07:30 Blood Pressure 114/62 11/02/19 07:30 O2 Sat by Pulse Oximetry (%) 99 11/02/19 07:30 CBC, BMP 11/02/19 05:52 11/02/19 05:52 Current Medications Generic Name Dose Route Start Last Admin Trade Name Freq PRN Reason Stop Dose Admin Heparin Sodium (Porcine) 5,000 unit 11/02/19 06:00 11/02/19 06:11 Heparin - SQ 5,000 unit TID DARWIN Administration Sodium Chloride 1,000 mls @ 100 mls/hr 11/02/19 05:00 11/02/19 05:29 Normal Saline - IV 100 mls/hr ASDIR DARWIN Administration Ondansetron HCl 4 mg 11/02/19 05:05 Zofran Injection IVPUSH Q6H PRN NAUSEA Pantoprazole Sodium 40 mg 11/02/19 10:00 11/02/19 09:45 Protonix Iv IVPUSH 40 mg DAILY DARWIN Administration CBC,CMP WBC 12.0 K/mm3 (4.0-10.0) H 11/02/19 05:52 RBC 3.03 M/mm3 (4.00-5.60) L 11/02/19 05:52 Hgb 10.8 GM/dL (11.7-16.9) L 11/02/19 05:52 Hct 31.3 % (35.4-49) L D 11/02/19 05:52 MCV 103.2 fl (80-96) H 11/02/19 05:52 MCH 35.5 pg (25.7-33.7) H 11/02/19 05:52 MCHC 34.4 g/dl (32.0-35.9) 11/02/19 05:52 RDW 12.7 % (11.9-15.9) 11/02/19 05:52 Plt Count 145 K/MM3 (134-434) D 11/02/19 05:52 MPV 9.1 fl (7.5-11.1) 11/02/19 05:52 Absolute Neuts (auto) 5.3 K/mm3 (1.5-8.0) 11/02/19 01:38 Neutrophils % 57.9 % (42.8-82.8) 11/02/19 01:38 Lymphocytes % 32.1 % (8-40) 11/02/19 01:38 Monocytes % 7.0 % (3.8-10.2) 11/02/19 01:38 Eosinophils % 2.4 % (0-4.5) 11/02/19 01:38 Basophils % 0.6 % (0-2.0) 11/02/19 01:38 Nucleated RBC % 0 % (0-0) 11/02/19 01:38 Sodium 137 mmol/L (136-145) 11/02/19 05:52 Potassium 4.2 mmol/L (3.5-5.1) 11/02/19 05:52 Chloride 106 mmol/L (98-107) 11/02/19 05:52 Carbon Dioxide 25 mmol/L (21-32) 11/02/19 05:52 Anion Gap 6 MMOL/L (8-16) L 11/02/19 05:52 BUN 22.7 mg/dL (7-18) H 11/02/19 05:52 Creatinine 2.0 mg/dL (0.55-1.3) H 11/02/19 05:52 Est GFR (CKD-EPI)AfAm 38.60 11/02/19 05:52 Est GFR (CKD-EPI)NonAf 33.30 11/02/19 05:52 Random Glucose 124 mg/dL (74-106) H 11/02/19 05:52 Hemoglobin A1c % 5.2 % (4.2-6.3) 11/02/19 01:38 Lactic Acid 1.8 mmol/L (0.4-2.0) 11/02/19 01:30 Calcium 8.5 mg/dL (8.5-10.1) 11/02/19 05:52 Phosphorus 2.1 mg/dL (2.5-4.9) L 11/02/19 05:52 Magnesium 2.1 mg/dL (1.8-2.4) 11/02/19 05:52 Total Bilirubin 0.4 mg/dL (0.2-1) 11/02/19 05:52 AST 18 U/L (15-37) 11/02/19 05:52 ALT 16 U/L (13-61) 11/02/19 05:52 Alkaline Phosphatase 36 U/L (45-117) L 11/02/19 05:52 Creatine Kinase 177 U/L (26-308) 11/02/19 01:40 Creatine Kinase Index No Result Required. 11/02/19 01:40 CK-MB (CK-2) < 1.0 ng/mL (0.5-3.6) 11/02/19 01:40 Troponin I < 0.02 ng/ml (0.00-0.05) 11/02/19 01:40 Total Protein 6.6 g/dl (6.4-8.2) 11/02/19 05:52 Albumin 3.5 g/dl (3.4-5.0) 11/02/19 05:52 Lipase 123 U/L (73-393) 11/02/19 01:40 TSH 0.56 uIU/ml (0.358-3.74) 11/02/19 05:52 Constitutional: Yes: Anxious Eyes: Yes: Conjunctiva Clear HENT: Yes: Normocephalic Neck: Yes: Trachea Midline Cardiovascular: Yes: Regular Rate and Rhythm Respiratory: Yes: CTA Bilaterally Gastrointestinal Inspection: Yes: WNL ...Auscultate: Yes: Normoactive Bowel Sounds ...Palpate: Yes: Other (nontender at present) ...Rectal Exam: Yes: Deferred (declined) Edema: No Peripheral Pulses WNL: Yes Neurological: Yes: Alert, Oriented Labs: CBC, BMP 11/02/19 05:52 11/02/19 05:52 INR, PTT INR 1.08 (0.83-1.09) 11/02/19 01:38 Laboratory Tests 11/02/19 11/02/19 11/02/19 01:38 01:38 01:40 PT with INR 12.70 BUN Creatinine 2.3 H Lipase 123 COVID-19 (ASHELY) HIV-1 RNA (PCR) Pending 11/02/19 11/02/19 05:52 07:30 PT with INR BUN 22.7 H Creatinine 2.0 H Lipase COVID-19 ([facility]LY) Pending HIV-1 RNA (PCR) Imaging - Results Cat Scan: Report Reviewed ( Final Report CT ABDOMEN & PELVIS CT W/O CONTR Show Printer-Friendly Version Patient Name: Gigi Gavin : 1950 ID: [id number] Study Date: 02-Nov-2019 02:24 [facility] Name: GIGI GAVIN DEPARTMENT OF RADIOLOGY Phys: Alexandria Larkin RESIDENT : 1950 Age: 69 Sex: M [facility] Acct: [id number] Loc: [address] Exam Date: 11/02/19 Status: [place] [address] Unit Number: [id number] EXAM#: TYPE/EXAM: RESULT: [id number] CT/ABDOMEN PELVIS CT W/O CONTR HISTORY PROVIDED: Abdominal pain and vomiting TECHNIQUE: Sequential axial images were obtained from the domes of the diaphragm through the symphysis pubis following the administration of oral contrast material. Mild atelectatic changes are noted at the right lung base. The liver, spleen, pancreas, adrenal glands and kidneys demonstrate no significant abnormalities. The gallbladder is clear. There is no evidence of intra- abdominal or retroperitoneal lymphadenopathy or fluid collections. There is no evidence of pneumoperitoneum, bowel obstruction or intra-abdominal abscess. There is no CT evidence of acute appendicitis or diverticulitis. Examination of the pelvis demonstrates no evidence of pelvic masses, fluid collections or lymphadenopathy. There is a small amount of free fluid within the dependent portion of the right pelvis. The etiology of this fluid is uncertain. There is a moderate amount retained fecal material within the sigmoid colon and rectum. There is no evidence of acute bony pathology. IMPRESSION: Free right pelvic fluid of uncertain etiology, otherwise no acute pathology within the abdomen or pelvis. Please see above discussion. Reported By: Wil Negrete MD 11/02/19815 Technologist: Margarita Richardson Transcribed Date/Time: 11/02/19815 Principal Trainer: Wil Negrete Printed Date/Time: By: Signed by: Wil Negrete Signed on: 02-Nov-2019 08:17) Problem List - Problems (1) Abdominal pain Code(s): R10.9 - UNSPECIFIED ABDOMINAL PAIN (2) Gastroenteritis Code(s): K52.9 - NONINFECTIVE GASTROENTERITIS AND COLITIS, UNSPECIFIED (3) HIV (human immunodeficiency virus infection) Code(s): B20 - HUMAN IMMUNODEFICIENCY VIRUS [HIV] DISEASE (4) Chronic hepatitis C virus genotype 3 infection Code(s): B18.2 - CHRONIC VIRAL HEPATITIS C (5) Hepatitis C virus infection cured after antiviral drug therapy Code(s): Z86.19 - PERSONAL HISTORY OF OTHER INFECTIOUS AND PARASITIC DISEASES (6) Hypertension Code(s): I10 - ESSENTIAL (PRIMARY) HYPERTENSION (7) Nausea & vomiting Code(s): R11.2 - NAUSEA WITH VOMITING, UNSPECIFIED Qualifiers: Vomiting type: unspecified Vomiting Intractability: non-intractable Qualified Code(s): R11.2 - Nausea with vomiting, unspecified Assessment/Plan Impression: - Given the lack of significant CT and lab finding I believe that Gigi has an acute viral gastroenteritis or perhaps food poisoning. If symptoms persists I have advised an EGD. I have discussed EGD and it's potential adverse effects including perforation and hemorrhage. He has granted an informed consent . - Personal h/o HCV genotype 3 cured by a course of therapy in 2016 - I have advised Gigi to make an appointment in our office to arrange a col onoscopy for colon cancer screening after discharge. Plan: -- IV hydration -- Ondansetron -- Advance diet as tolerated -- If symptoms persist, I will do an EGD on 11/04/19 I discussed the case with Dr Farnsworth
--- NOTE | 2019-11-02 11:18 | PN ---
Progress Note (short form) - Note Progress Note: ID CONSULT DICTATED ACUTE GASTROENTERITIS DEHYDRATION HIV+ STABLE IVF HYDRATION HOLD MASOODYA
--- NOTE | 2019-11-02 11:40 | CON.NEP ---
Consult Consult Specialty:: Nephrology Referred by:: Medicine Reason for Consultation:: Acute kidney injury - History of Present Illness Chief Complaint: Nausea and vomitting History of Present Illness: This is a 69 year old woman with history of HIV, hypertension, substance abuse now on methadone who presented from home with nausea/vomiting and found to have acute kidney injury with Cr of 2. Seen and examined in the ED. He continues to have some abd pain and reports difficultly urinating. Denies any chest pain, sob, fever, chills. No leg swelling. Was told in the past that his kidney function was abnormal but it was due to one of his HIV meds and improved s/p discontinuation. Denies any dysuria or flank pain. - History Source History Provided By: Patient - Past Medical History Cardio/Vascular: Yes: HTN Hepatobiliary: Yes: Hepatitis C (treated and cured in [address] Edmundo Broussard) Infectious Disease: Yes: HIV (on HAART with Dr Farnsworth) - Past Surgical History Past Surgical History: Yes: None - Alcohol/Substance Use Hx Alcohol Use: No (STOPPED OVER 25 YEARS AGO) History of Substance Use: reports: Heroin (IVDA until 1991) - Smoking History Smoking history: Current every day smoker Have you smoked in the past 12 months: Yes Aproximately how many cigarettes per day: 5 - Social History Usual Living Arrangement: With Spouse ADL: Independent 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 History of Recent Travel: No Home Medications - Allergies Allergies/Adverse Reactions: Allergies Allergy/AdvReac Type Severity Reaction Status Date / Time No Known Drug Allergies Allergy Verified 11/02/19 07:07 - Home Medications Home Medications: Ambulatory Orders Ascorbic Acid [Vitamin C] 500 mg PO DAILY 07/08/17 Elviteg/Cob/Emtri/Tenof Alafen [Genvoya Tablet] 1 each PO HS 07/08/17 Lisinopril 10 mg PO DAILY 07/08/17 Methadone [Dolophine -] 15 mg PO DAILY 07/08/17 Aspirin [ASA -] 325 mg PO DAILY@0800 tablet 07/16/17 Family Medical History Family History: Unremarkable Review of Systems - Review of Systems Constitutional: reports: Weakness. denies: Chills, Fever Eyes: reports: No Symptoms HENT: reports: No Symptoms Neck: reports: No Symptoms Cardiovascular: reports: No Symptoms Respiratory: reports: No Symptoms Gastrointestinal: reports: Abdominal Pain, Nausea, Vomiting Genitourinary: reports: Other (urinary retention) Musculoskeletal: reports: No Symptoms Neurological: reports: No Symptoms Endocrine: reports: No Symptoms Nephrology Consult - Height Height: 5 ft 6 in - Weight Weight: 58.967 kg - BMI Body Mass Index (BMI): 20.9 - Lab Results CBC,BMP: CBC, BMP 11/02/19 05:52 11/02/19 05:52 Anion Gap: Anion Gap Anion Gap 6 MMOL/L (8-16) L 11/02/19 05:52 - Imaging Cat Scan: Report Reviewed - Physical Examination Vital Signs: Vital Signs Temperature 98 F 11/02/19 07:30 Pulse Rate 80 11/02/19 07:30 Respiratory Rate 16 11/02/19 07:30 Blood Pressure 114/62 11/02/19 07:30 O2 Sat by Pulse Oximetry (%) 99 11/02/19 07:30 Constitutional: Yes: No Distress, Calm Eyes: Yes: Conjunctiva Clear HENT: Yes: Atraumatic Neck: Yes: Supple Cardiovascular: Yes: Regular Rate and Rhythm Respiratory: Yes: Regular Gastrointestinal: Yes: Soft, Tenderness Renal/: Yes: Bladder Distention Extremities: No: Cold, Cool, Cyanosis Neurological: Yes: Alert, Oriented Assessment/Plan 69 year old woman with history of HIV, hypertension, substance abuse now on methadone who presented from home with nausea/vomiting and found to have acute kidney injury with Cr of 2. 1. Acute kidney injury in setting of volume depletion vs. some degree of CKD 2. Nausea/vomiting in setting of suspected gastroenteritis 3. HIV 4. Hypertension 5. BPH r/o acute retention Check urine studies. CT of the Abd showed no hydro or signs of obtruction in the kidney Check bladder US to r/o retention, if > 400cc residual will need barroso insertion Continue NS at 100cc per hour Can consider starting flomax orally as pt reports history of BPH continue supportive care avoid LUANN/ARB or diuretics for now Trend renal function and electrolytes daily Denise Yoo follow Varinder Wilkes DO
[2019-11-02] MEDS: ONDANSETRON 4 MG/2 ML VIAL IVPUSH PRN ×2 (13:40→18:39)
[2019-11-02 16:42] LABS: EPI CELLS 2 /uL (0-25.1); HYALINE CASTS 0 /uL (0-3.1); URINE APPEARANCE CLEAR; URINE BACTERIA 5 /uL (0-1359); URINE BILIRUBIN NEGATIVE (NEGATIVE); URINE COLOR YELLOW; URINE GLUCOSE (UA) NEGATIVE (NEGATIVE); URINE KETONE NEGATIVE (NEGATIVE); URINE LEUK ESTERASE NEGATIVE (NEGATIVE); URINE NITRITE NEGATIVE (NEGATIVE); URINE PROTEIN NEGATIVE (NEGATIVE); URINE RBC 142 /uL (0-23.9); URINE UROBILINOGEN 0.2 mg/dL (0.2-1.0); URINE WBC 2 /uL (0-25.8)
--- NOTE | 2019-11-02 17:11 | PN ---
Progress Note, Physician History of Present Illness: pt seen/ examined in er chart reviewed. feels little better afebrile denies blood in stools abd pain + but better - Current Medication List Current Medications: Active Medications Heparin Sodium (Porcine) (Heparin -) 5,000 unit SQ TID [facility] Last Admin: 11/02/19 16:33 Dose: Not Given Documented by: Potassium Chloride/Dextrose/Sod Cl (D5-1/2ns+20 Meq Kcl -) 20 meq in 1,000 mls @ 100 mls/hr IV ASDIR [facility] Ondansetron HCl (Zofran Injection) 4 mg IVPUSH Q6H PRN PRN Reason: NAUSEA Last Admin: 11/02/19 13:40 Dose: 4 mg Documented by: Pantoprazole Sodium (Protonix Iv) 40 mg IVPUSH DAILY [facility] Last Admin: 11/02/19 09:45 Dose: 40 mg Documented by: - Objective Vital Signs: Vital Signs Temperature 98.7 F 11/02/19 13:46 Pulse Rate 80 11/02/19 13:46 Respiratory Rate 18 11/02/19 13:46 Blood Pressure 120/68 11/02/19 13:46 O2 Sat by Pulse Oximetry (%) 98 11/02/19 13:46 Constitutional: Yes: Mild Distress Eyes: Yes: Conjunctiva Clear. No: Occular Prosthesis Neck: Yes: Supple Cardiovascular: Yes: Regular Rate and Rhythm Respiratory: Yes: CTA Bilaterally Gastrointestinal: Yes: Soft, Tenderness (mild - generalized -- no r/r. bs +) Edema: No Neurological: Yes: Alert Labs: CBC, BMP 11/02/19 05:52 11/02/19 05:52 INR, PTT INR 1.08 (0.83-1.09) 11/02/19 01:38 Problem List - Problems (1) Gastroenteritis Code(s): K52.9 - NONINFECTIVE GASTROENTERITIS AND COLITIS, UNSPECIFIED (2) HIV (human immunodeficiency virus infection) Code(s): B20 - HUMAN IMMUNODEFICIENCY VIRUS [HIV] DISEASE (3) Nausea & vomiting Code(s): R11.2 - NAUSEA WITH VOMITING, UNSPECIFIED Qualifiers: Vomiting type: unspecified Vomiting Intractability: non-intractable Qualified Code(s): R11.2 - Nausea with vomiting, unspecified Assessment/Plan Continue present care Clear liquid diet monitor labs. Mild hydration Will follow
--- NOTE | 2019-11-02 17:35 | CONS ---
DATE OF CONSULTATION: 11/02/2019 INFECTIOUS DISEASE CONSULTATION HISTORY OF PRESENT ILLNESS: The patient is a 69-year-old male with a history of HIV disease, asymptomatic, chronic kidney disease, and history of chronic liver disease. He is evaluated for his HIV medications. The patient was well until the evening of admission. He had shared a meal of rice and beans with his . He was fine. Later that evening he had some canned chicken soup. He developed an abrupt onset of dizziness, subjective fever, diaphoresis, abdominal pain, and nausea and vomiting. He denies non-bloody, non-bilious vomiting. He denied any diarrhea. His remains well without symptoms. He presented to the emergency room where he was noted to be dehydrated and he was treated with IV fluids. He was seen in consultation by GI. CAT scan of the abdomen and pelvis was performed and was negative for any acute pathology. The patient has a long-standing history of HIV disease. He is stable on antiretroviral therapy. His most recent viral markers from July of 2019 revealed an undetectable viral load and a T-cell count of 409. He denies any ill contacts, no recent travel, no new medications, and no recent antibiotic therapy. He has not been eating in restaurants due to the coronavirus pandemic. He thinks he may have been exposed as he takes public transportation. PAST MEDICAL HISTORY: Positive for HIV disease, asymptomatic, chronic kidney disease with a baseline creatinine of 1.8 to 1.9, history of hepatitis C treated in the past, chronic liver disease, hypertension, BPH, hyperlipidemia, and osteoarthritis of the left knee. PAST SURGICAL HISTORY: Status post MAKOplasty of the knee. ALLERGIES: No known allergies. MEDICATIONS: Include. 1. Genvoya. 2. Heparin. 3. Pepcid. 4. Antivert. 5. Protonix. SOCIAL HISTORY: He resides at home with his . He smokes several cigarettes a day. History of opiate addiction on methadone. SYSTEMS REVIEW: Neurologic: Positive for dizziness. No loss of consciousness, seizure activity or focal weakness. Cardiac: Negative chest pain or palpitations. Respiratory: Negative cough or sputum production. Gastrointestinal: As per HPI. Genitourinary: Negative for urinary tract infection. LABORATORY DATA: White count 12.8, 2 eosinophils, hematocrit 31.3, platelets 145. Creatinine 2.0. Liver enzymes normal. Lipase normal. CAT scan of the abdomen and pelvis negative for acute pathology. CAT scan of the head negative. Chest x-ray negative. PHYSICAL EXAMINATION: General: He is awake; he is in moderate distress secondary to nausea and vomiting. Vital Signs: Temperature 98, blood pressure is 114/62, pulse 80 and regular, and [id number] per minute. HEENT: Sclerae anicteric. Cardiovascular: Heart sounds S1, S2. Lungs: Clear. Abdomen: Soft. Mild diffuse tenderness. Extremities. Negative for edema. IMPRESSION: 1. Acute gastroenteritis. 2. Dehydration. 3. Human immunodeficiency virus positive, stable. 4. Chronic kidney disease. 5. History of chronic liver disease. Continue IV fluid hydration. Patient denies diarrhea. Should he develop any diarrhea, we will obtain stool studies. We will hold antiretroviral therapy in light of his nausea and vomiting. Case discussed with GI as well as the patients . Will follow. Thank you for the kind referral. RAJESH QURESHI M.D. [id number]
[2019-11-02] MEDS: D5-1/2NS+20 MEQ KCL - 20 MEQ/1,000 ML INFUS.BAG IV SCH (18:39)
[2019-11-03] MEDS: HEPARIN NA (PORCINE) 5,000 UNITS/ML 1ML VIAL SQ SCH ×3 (05:09→22:52)
[2019-11-03 08:27] LABS: BASO % 0.1 % (0-2.0); EOS % 0.6 % (0-4.5); HEMOGLOBIN 11.8 GM/dL (11.7-16.9); LYMPH % 16.1 % (8-40); MCH 34.9 pg (25.7-33.7); MCHC 33.7 g/dl (32.0-35.9); MEAN CELL VOLUME 103.6 fl (80-96); MEAN PLT VOLUME 9.8 fl (7.5-11.1); MONO % 6.6 % (3.8-10.2); NEUT % 76.6 % (42.8-82.8); PLATELET COUNT 154 K/MM3 (134-434); RBC 3.38 M/mm3 (4.00-5.60); RDW 12.9 % (11.9-15.9); WHITE BLOOD COUNT 11.3 K/mm3 (4.0-10.0)
[2019-11-03 08:59] LABS: ALBUMIN 3.7 g/dl (3.4-5.0); BILIRUBIN,TOTAL 0.7 mg/dL (0.2-1); BLOOD UREA NITROGEN 16.5 mg/dL (7-18); CALCIUM 8.8 mg/dL (8.5-10.1); CREATININE 1.7 mg/dL (0.55-1.3); MAGNESIUM 2.4 mg/dL (1.8-2.4); PHOSPHOROUS 1.7 mg/dL (2.5-4.9); POTASSIUM 4.2 mmol/L (3.5-5.1); TOT PROT 7.4 g/dl (6.4-8.2)
[2019-11-03] MEDS: PANTOPRAZOLE SODIUM 40 MG VIAL IVPUSH SCH (10:22)
--- NOTE | 2019-11-03 12:32 | PN ---
Progress Note (short form) - Note Progress Note: events noted Mild dizziness now when he turns his head to the right no tinnitus mild nausea no diarrhea no bm no abd pain no headaches Vital Signs - 24 hr 11/02/19 11/02/19 11/02/19 13:46 17:53 18:01 Temperature 98.7 F 98.5 F Pulse Rate 68 Pulse Rate [ 80 Apical] Respiratory 18 18 18 Rate Blood Pressure 126/66 Blood Pressure 120/68 [Left Arm] O2 Sat by Pulse 98 98 Oximetry (%) 11/02/19 11/02/19 11/03/19 21:00 22:31 02:08 Temperature 97.6 F 97.8 F Pulse Rate 78 66 Pulse Rate [ Apical] Respiratory 17 17 17 Rate Blood Pressure 103/56 L 109/64 Blood Pressure [Left Arm] O2 Sat by Pulse 98 Oximetry (%) 11/03/19 11/03/19 06:00 09:00 Temperature 98.1 F Pulse Rate 62 Pulse Rate [ Apical] Respiratory 18 16 Rate Blood Pressure 104/63 Blood Pressure [Left Arm] O2 Sat by Pulse 99 Oximetry (%) Current Medications Generic Name Dose Route Start Last Admin Trade Name Freq PRN Reason Stop Dose Admin Heparin Sodium (Porcine) 5,000 unit 11/02/19 06:00 11/03/19 05:09 Heparin - SQ 5,000 unit TID [facility] Administration Potassium Chloride/Dextrose/Sod Cl 20 meq in 1,000 mls @ 100 mls/hr 11/02/19 17:15 11/02/19 18:39 D5-1/2ns+20 Meq Kcl - IV 100 mls/hr ASDIR [facility] Administration Ondansetron HCl 4 mg 11/02/19 05:05 11/02/19 18:39 Zofran Injection IVPUSH 4 mg Q6H PRN Administration NAUSEA Pantoprazole Sodium 40 mg 11/02/19 10:00 11/03/19 10:22 Protonix Iv IVPUSH 40 mg DAILY [facility] Administration Laboratory Results - last 24 hr 11/02/19 11/02/19 11/03/19 11:30 11:30 08:00 WBC RBC Hgb Hct MCV MCH MCHC RDW Plt Count MPV Absolute Neuts (auto) Neutrophils % Lymphocytes % Monocytes % Eosinophils % Basophils % Nucleated RBC % Sodium 138 Potassium 4.2 Chloride 107 Carbon Dioxide 26 Anion Gap 5 L BUN 16.5 Creatinine 1.7 H Est GFR (CKD-EPI)AfAm 46.98 Est GFR (CKD-EPI)NonAf 40.54 Random Glucose 101 Calcium 8.8 Phosphorus 1.7 L Magnesium 2.4 Total Bilirubin 0.7 AST 19 ALT 17 Alkaline Phosphatase 40 L Total Protein 7.4 Albumin 3.7 Urine Color Yellow Urine Appearance Clear Urine pH 7.0 Ur Specific Vicco 1.014 Urine Protein Negative Urine Glucose (UA) Negative Urine Ketones Negative Urine Blood 1+ H Urine Nitrite Negative Urine Bilirubin Negative Urine Urobilinogen 0.2 Ur Leukocyte Esterase Negative Urine WBC (Auto) 2 Urine RBC (Auto) 142 Urine Casts (Auto) 0 U Epithel Cells (Auto) 2 Urine Bacteria (Auto) 5 Ur Random Creatinine 108.0 Ur Random Sodium 121 11/03/19 08:00 WBC 11.3 H RBC 3.38 L Hgb 11.8 Hct 35.0 L MCV 103.6 H MCH 34.9 H MCHC 33.7 RDW 12.9 Plt Count 154 MPV 9.8 Absolute Neuts (auto) 8.6 H Neutrophils % 76.6 D Lymphocytes % 16.1 D Monocytes % 6.6 Eosinophils % 0.6 Basophils % 0.1 Nucleated RBC % 0 Sodium Potassium Chloride Carbon Dioxide Anion Gap BUN Creatinine Est GFR (CKD-EPI)AfAm Est GFR (CKD-EPI)NonAf Random Glucose Calcium Phosphorus Magnesium Total Bilirubin AST ALT Alkaline Phosphatase Total Protein Albumin Urine Color Urine Appearance Urine pH Ur Specific Vicco Urine Protein Urine Glucose (UA) Urine Ketones Urine Blood Urine Nitrite Urine Bilirubin Urine Urobilinogen Ur Leukocyte Esterase Urine WBC (Auto) Urine RBC (Auto) Urine Casts (Auto) U Epithel Cells (Auto) Urine Bacteria (Auto) Ur Random Creatinine Ur Random Sodium S1 S2 RRR Lungs clear Abd- soft, NT No edema AAOx3 PLAN IV fluids advance diet ID and GI eval appreciated renal function getting better' will hold off Meclizine as dizziness is better zofran prn Problem List - Problems (1) FRAN (acute kidney injury) Code(s): N17.9 - ACUTE KIDNEY FAILURE, UNSPECIFIED (2) Abdominal pain Code(s): R10.9 - UNSPECIFIED ABDOMINAL PAIN (3) Chronic hepatitis C virus genotype 3 infection Code(s): B18.2 - CHRONIC VIRAL HEPATITIS C (4) Dizziness Code(s): R42 - DIZZINESS AND GIDDINESS (5) Gastroenteritis Code(s): K52.9 - NONINFECTIVE GASTROENTERITIS AND COLITIS, UNSPECIFIED (6) HIV (human immunodeficiency virus infection) Code(s): B20 - HUMAN IMMUNODEFICIENCY VIRUS [HIV] DISEASE (7) Hypertension Code(s): I10 - ESSENTIAL (PRIMARY) HYPERTENSION
[2019-11-03] MEDS ORDERED: SODIUM PHOSPHATE - 30 MM in DEXTROSE 5%-WATER - 250 ML IVPB ONE (16:01)
[2019-11-03 16:07] VITALS: BMI 18.7
[2019-11-03] MEDS ORDERED: SODIUM PHOSPHATE - 30 MM in DEXTROSE 5%-WATER - 500 ML IVPB ONE (16:15)
--- NOTE | 2019-11-03 18:18 | PN ---
Progress Note, Physician Chief Complaint: Seen and examined at the bedside awake and alert has no further naussea making urine on IVF tolerating liquid diet no sob, cp, fever, chills - Current Medication List Current Medications: Active Medications Heparin Sodium (Porcine) (Heparin -) 5,000 unit SQ TID [facility] Last Admin: 11/03/19 16:34 Dose: 5,000 unit Documented by: Potassium Chloride/Dextrose/Sod Cl (D5-1/2ns+20 Meq Kcl -) 20 meq in 1,000 mls @ 100 mls/hr IV ASDIR [facility] Last Admin: 11/02/19 18:39 Dose: 100 mls/hr Documented by: Sodium Phosphate 30 mm/ (Dextrose) 510 mls @ 63.75 mls/hr IVPB ONCE ONE Stop: 11/04/19 00:14 Ondansetron HCl (Zofran Injection) 4 mg IVPUSH Q6H PRN PRN Reason: NAUSEA Last Admin: 11/02/19 18:39 Dose: 4 mg Documented by: Pantoprazole Sodium (Protonix Iv) 40 mg IVPUSH DAILY [facility] Last Admin: 11/03/19 10:22 Dose: 40 mg Documented by: - Objective Vital Signs: Vital Signs Temperature 98.4 F 11/03/19 14:25 Pulse Rate 64 11/03/19 14:25 Respiratory Rate 18 11/03/19 14:25 Blood Pressure 114/71 11/03/19 14:25 O2 Sat by Pulse Oximetry (%) 99 11/03/19 09:00 Constitutional: Yes: No Distress Neck: Yes: Supple Respiratory: Yes: Regular Gastrointestinal: Yes: Soft Edema: No Labs: CBC, BMP 11/03/19 08:00 11/03/19 08:00 INR, PTT INR 1.08 (0.83-1.09) 11/02/19 01:38 Assessment/Plan 69 year old woman with history of HIV, hypertension, substance abuse now on methadone who presented from home with nausea/vomiting and found to have acute kidney injury with Cr of 2. 1. Acute kidney injury in setting of volume depletion vs. some degree of CKD 2. Nausea/vomiting in setting of suspected gastroenteritis 3. HIV 4. Hypertension 5. BPH r/o acute retention Renal function improving with IVF. Continue fluids until the AM CT of the Abd showed no hydro or signs of obtruction in the kidney Check bladder US to r/o retention, if > 400cc residual will need barroso insertion Continue NS at 100cc per hour continue supportive care avoid LUANN/ARB or diuretics for now Trend renal function and electrolytes daily Thank you Will follow Varinder Wilkes DO
--- NOTE | 2019-11-03 20:45 | PN.GI ---
GI Progress Note Subjective: GI NOte: Feeling much better. No vomiting. Tolerating liquids. No diarrhea. EGD offered and initially consented but changed his mind stating he needs to be out of the hospital by 1PM - Objective Vital Signs: Vital Signs Temperature 98.1 F 11/03/19 18:51 Pulse Rate 64 11/03/19 18:51 Respiratory Rate 18 11/03/19 18:51 Blood Pressure 114/63 11/03/19 18:51 O2 Sat by Pulse Oximetry (%) 99 11/03/19 09:00 Laboratory Tests 11/02/19 11/02/19 11/03/19 01:38 05:52 08:00 WBC 9.1 12.0 H Total Bilirubin 0.7 Alkaline Phosphatase 40 L 11/03/19 08:00 WBC 11.3 H Total Bilirubin Alkaline Phosphatase Constitutional: Calm ...Auscultate: Yes: Normoactive Bowel Sounds ...Palpate: Yes: Soft, Other (nontender) Labs: CBC, BMP 11/03/19 08:00 11/03/19 08:00 INR, PTT INR 1.08 (0.83-1.09) 11/02/19 01:38 Assessment/Plan Impression: - Resolving viral gastroenteritis. EGD offered to exclude ulcer, gastritis, GERD and varices but declined after being informed of the potential adverse events associated with endoscopy . - Personal h/o HCV genotype 3 cured by a course of therapy in 2015 - I have again advised Gigi to make an appointment in our office to arrange a colonoscopy for colon cancer screening after discharge and gave him our business card Plan: -- Advance diet -- Will order AFP -- If diet is tolerated, can discharge Problem List - Problems (1) Abdominal pain Code(s): R10.9 - UNSPECIFIED ABDOMINAL PAIN (2) Gastroenteritis Code(s): K52.9 - NONINFECTIVE GASTROENTERITIS AND COLITIS, UNSPECIFIED (3) HIV (human immunodeficiency virus infection) Code(s): B20 - HUMAN IMMUNODEFICIENCY VIRUS [HIV] DISEASE (4) Chronic hepatitis C virus genotype 3 infection Code(s): B18.2 - CHRONIC VIRAL HEPATITIS C (5) Hepatitis C virus infection cured after antiviral drug therapy Code(s): Z86.19 - PERSONAL HISTORY OF OTHER INFECTIOUS AND PARASITIC DISEASES (6) Hypertension Code(s): I10 - ESSENTIAL (PRIMARY) HYPERTENSION (7) Nausea & vomiting Code(s): R11.2 - NAUSEA WITH VOMITING, UNSPECIFIED Qualifiers: Vomiting type: unspecified Vomiting Intractability: non-intractable Qualified Code(s): R11.2 - Nausea with vomiting, unspecified
[2019-11-03] MEDS: D5-1/2NS+20 MEQ KCL - 20 MEQ/1,000 ML INFUS.BAG IV SCH (21:58)
--- NOTE | 2019-11-03 22:38 | PN ---
Progress Note, Physician History of Present Illness: AWAKE. ALERT FEELING BETTER NAUSEA IMPROVED TOLERATING LIQUIDS NO C/O ABDOMINAL PAIN NO FEVER/ CHILLS WBC IMPROVED - Current Medication List Current Medications: Active Medications Heparin Sodium (Porcine) (Heparin -) 5,000 unit SQ TID [facility] Last Admin: 11/03/19 16:34 Dose: 5,000 unit Documented by: Potassium Chloride/Dextrose/Sod Cl (D5-1/2ns+20 Meq Kcl -) 20 meq in 1,000 mls @ 100 mls/hr IV ASDIR [facility] Last Admin: 11/03/19 21:58 Dose: Not Given Documented by: Sodium Phosphate 30 mm/ (Dextrose) 510 mls @ 63.75 mls/hr IVPB ONCE ONE Stop: 11/04/19 00:14 Last Admin: 11/03/19 18:34 Dose: 63.75 mls/hr Documented by: Ondansetron HCl (Zofran Injection) 4 mg IVPUSH Q6H PRN PRN Reason: NAUSEA Last Admin: 11/02/19 18:39 Dose: 4 mg Documented by: Pantoprazole Sodium (Protonix Iv) 40 mg IVPUSH DAILY [facility] Last Admin: 11/03/19 10:22 Dose: 40 mg Documented by: - Objective Vital Signs: Vital Signs Temperature 98.1 F 11/03/19 22:16 Pulse Rate 67 11/03/19 22:16 Respiratory Rate 16 11/03/19 22:16 Blood Pressure 120/58 L 11/03/19 22:16 O2 Sat by Pulse Oximetry (%) 99 11/03/19 09:00 Constitutional: Yes: Thin Cardiovascular: Yes: Regular Rate and Rhythm, S1, S2 Respiratory: Yes: CTA Bilaterally Gastrointestinal: Yes: Normal Bowel Sounds, Soft. No: Tenderness Edema: No Labs: CBC, BMP 11/03/19 08:00 11/03/19 08:00 INR, PTT INR 1.08 (0.83-1.09) 11/02/19 01:38 Assessment/Plan ACUTE GASTROENTERITIS IMPROVED AZOTEMIA IMPROVED HIV+ STABLE ADVANCE DIET HOLD ART
[2019-11-04] MEDS: D5-1/2NS+20 MEQ KCL - 20 MEQ/1,000 ML INFUS.BAG IV SCH (02:20)
[2019-11-04 08:12] LABS: BLOOD UREA NITROGEN 13.7 mg/dL (7-18); CREATININE 1.4 mg/dL (0.55-1.3); POTASSIUM 3.9 mmol/L (3.5-5.1)
[2019-11-04 08:23] LABS: BASO % 0.2 % (0-2.0); EOS % 0.9 % (0-4.5); HEMATOCRIT 34.6 % (35.4-49); LYMPH % 25.4 % (8-40); MCH 35.9 pg (25.7-33.7); MCHC 34.6 g/dl (32.0-35.9); MEAN CELL VOLUME 103.7 fl (80-96); MEAN PLT VOLUME 10.1 fl (7.5-11.1); MONO % 8.4 % (3.8-10.2); NEUT % 65.1 % (42.8-82.8); PLATELET COUNT 148 K/MM3 (134-434); RBC 3.34 M/mm3 (4.00-5.60); RDW 12.9 % (11.9-15.9)
[2019-11-04] MEDS: HEPARIN NA (PORCINE) 5,000 UNITS/ML 1ML VIAL SQ SCH (09:34)
[2019-11-04] MEDS: PANTOPRAZOLE SODIUM 40 MG VIAL IVPUSH SCH (09:37)
--- NOTE | 2019-11-04 10:03 | DS ---
Physical Examination Vital Signs: Vital Signs Temperature 98.1 F 11/03/19 22:16 Pulse Rate 67 11/03/19 22:16 Respiratory Rate 16 11/03/19 22:16 Blood Pressure 120/58 L 11/03/19 22:16 O2 Sat by Pulse Oximetry (%) 99 11/03/19 21:00 Labs: CBC, BMP 11/04/19 07:15 11/04/19 06:00 Discharge Summary Problems reviewed: Yes Reason For Visit: ACUTE KIDNEY INJURY,DIZZINESS,NAUSEA AND VOMITING Current Active Problems FRAN (acute kidney injury) (Acute) Abdominal pain (Acute) Chronic hepatitis C virus genotype 3 infection (Acute) Dizziness (Acute) Gastroenteritis (Acute) HIV (human immunodeficiency virus infection) (Acute) Hepatitis C virus infection cured after antiviral drug therapy (Acute) Hypertension (Acute) Nausea & vomiting (Acute) Condition: Stable - Instructions Referrals: Twin Bobo MD [Primary Care Provider] - - Home Medications Comprehensive Discharge Medication List: Ambulatory Orders Ascorbic Acid [Vitamin C] 500 mg PO DAILY 07/08/17 Elviteg/Cob/Emtri/Tenof Alafen [Genvoya Tablet] 1 each PO HS 07/08/17 Methadone [Dolophine -] 15 mg PO DAILY 07/08/17 Aspirin [ASA -] 325 mg PO DAILY@0800 tablet 07/16/17 Pantoprazole Sodium [Protonix] 40 mg PO DAILY #14 tablet. 11/04/19
--- NOTE | 2019-11-04 11:27 | PN.GI ---
GI Progress Note Subjective: GO NOte: Tolerated solid diet. No vomiting. NO pain. Declined EGD - Objective Vital Signs: Vital Signs Temperature 98.1 F 11/03/19 22:16 Pulse Rate 67 11/03/19 22:16 Respiratory Rate 16 11/03/19 22:16 Blood Pressure 120/58 L 11/03/19 22:16 O2 Sat by Pulse Oximetry (%) 99 11/03/19 21:00 Constitutional: Calm ...Auscultate: Yes: Normoactive Bowel Sounds ...Palpate: Yes: Other (nontender) Labs: CBC, BMP 11/04/19 07:15 11/04/19 06:00 INR, PTT INR 1.08 (0.83-1.09) 11/02/19 01:38 Assessment/Plan Impression: - Resolving viral gastroenteritis. EGD decline. - Personal h/o HCV genotype 3 cured by a course of therapy in 2015 - I have again advised Gigi to make an appointment in our office to arrange a colonoscopy for colon cancer screening after discharge and gave him our business card Plan: -- NO GI objections to discharge Problem List - Problems (1) Abdominal pain Code(s): R10.9 - UNSPECIFIED ABDOMINAL PAIN (2) Gastroenteritis Code(s): K52.9 - NONINFECTIVE GASTROENTERITIS AND COLITIS, UNSPECIFIED (3) HIV (human immunodeficiency virus infection) Code(s): B20 - HUMAN IMMUNODEFICIENCY VIRUS [HIV] DISEASE (4) Chronic hepatitis C virus genotype 3 infection Code(s): B18.2 - CHRONIC VIRAL HEPATITIS C (5) Hepatitis C virus infection cured after antiviral drug therapy Code(s): Z86.19 - PERSONAL HISTORY OF OTHER INFECTIOUS AND PARASITIC DISEASES (6) Hypertension Code(s): I10 - ESSENTIAL (PRIMARY) HYPERTENSION (7) Nausea & vomiting Code(s): R11.2 - NAUSEA WITH VOMITING, UNSPECIFIED Qualifiers: Vomiting type: unspecified Vomiting Intractability: non-intractable Qualified Code(s): R11.2 - Nausea with vomiting, unspecified
[2019-11-04 11:50] VITALS: BP 122/64; PULSE 66; TEMP 98
--- NOTE | 2019-11-04 12:14 | PN ---
Progress Note, Physician History of Present Illness: AWAKE. ALERT OOB IN CHAIR FEELING BETTER NAUSEA RESOLVED TOLERATING DIET NO C/O ABDOMINAL PAIN NO FEVER/ CHILLS WBC IMPROVED COVID-19 (-) - Current Medication List Current Medications: Active Medications Heparin Sodium (Porcine) (Heparin -) 5,000 unit SQ TID [facility] Last Admin: 11/04/19 09:34 Dose: Not Given Documented by: Ondansetron HCl (Zofran Injection) 4 mg IVPUSH Q6H PRN PRN Reason: NAUSEA Last Admin: 11/02/19 18:39 Dose: 4 mg Documented by: Pantoprazole Sodium (Protonix Iv) 40 mg IVPUSH DAILY [facility] Last Admin: 11/04/19 09:37 Dose: 40 mg Documented by: - Objective Vital Signs: Vital Signs Temperature 98.0 F 11/04/19 10:00 Pulse Rate 66 11/04/19 10:00 Respiratory Rate 18 11/04/19 10:00 Blood Pressure 122/64 11/04/19 10:00 O2 Sat by Pulse Oximetry (%) 99 11/04/19 09:00 Constitutional: Yes: No Distress Eyes: Yes: Conjunctiva Clear Cardiovascular: Yes: Regular Rate and Rhythm Respiratory: Yes: CTA Bilaterally Gastrointestinal: Yes: Normal Bowel Sounds, Soft. No: Tenderness Edema: No Labs: CBC, BMP 11/04/19 07:15 11/04/19 06:00 INR, PTT INR 1.08 (0.83-1.09) 11/02/19 01:38 Assessment/Plan ACUTE GASTROENTERITIS IMPROVED AZOTEMIA IMPROVED HIV+ STABLE ADVANCE DIET HOLD ART RESUME ART OUTPATIENT
[2019-11-05 22:06] LABS: HEP B CORE AB, TOT Positive (Negative)
== END 2019-11-04 12:51 | disposition home or self-care (01) | DRG 392 ==
LOC: JER 00:50 → JERBED 03:57 → J7W 17:49
PROVIDERS: ADMIT Internal Medicine; ATTEND Internal Medicine
DX: A08.4 Viral intestinal infection, unspecified (principal); N17.9 Acute kidney failure, unspecified; Z21 Asymptomatic human immunodeficiency virus [HIV] infection status; I10 Essential (primary) hypertension; E86.0 Dehydration; N28.1 Cyst of kidney, acquired; I12.9 Hypertensive chronic kidney disease with stage 1 through stage 4 chronic kidney disease, or unspecified chronic kidney disease; N18.9 Chronic kidney disease, unspecified; A05.9 Bacterial foodborne intoxication, unspecified; N40.1 Benign prostatic hyperplasia with lower urinary tract symptoms; R33.8 Other retention of urine; Z86.19 Personal history of other infectious and parasitic diseases
CPT/HCPCS: 36415; 70450-TC; 71045-TC-FY; 74176-TC; 76856-TC; 80048; 80053; 81003; 82105; 82550; 82553; 82565; 83036; 83605; 83690; 83735; 84100; 84300; 84443; 84484; 85025; 85027; 85610; 85730; 86704; 86706; 86707; 86708; 86709; 87040; 87086; 87340; 87522; 87536; 93005; 93010; 99285-25; J1644; U0003

== ENCOUNTER 2020-03-21 08:05 | Emergency (ER) | payer OTHER ==
[2020-03-21] MEDS ORDERED: KETOROLAC TROMETHAMINE 60 MG/2 ML VIAL IM ONE (08:19)
[2020-03-21] MEDS ORDERED: KETOROLAC TROMETHAMINE 60 MG/2 ML VIAL ONE (08:23)
[2020-03-21] MEDS ORDERED: ACETAMINOPHEN 325 MG TABLET (FP) PO PRN (09:04)
[2020-03-21 09:10] VITALS: BMI 23.6
[2020-03-21] MEDS ORDERED: ACETAMINOPHEN 325 MG TABLET (FP) ONE (09:19)
[2020-03-21 14:14] VITALS: BP 139/89; PULSE 89; TEMP 98.3
== END 2020-03-21 14:15 | disposition home or self-care (01) ==
LOC: JER 08:05
PROC: 3E0233Z Introduction of Anti-inflammatory into Muscle, Percutaneous Approach (ICD-10-PCS; principal; 2020-03-21)
DX: S99.921A Unspecified injury of right foot, initial encounter (principal); S92.009A Unspecified fracture of unspecified calcaneus, initial encounter for closed fracture
CPT/HCPCS: 73502-TC-RT-FY; 73552-TC-RT-FY; 73560-TC-RT-FY; 73590-TC-RT-FY; 73610-TC-RT-FY; 73630-TC-RT-FY; 99285-25